=== PATIENT | female | born 1990 | race Caucasian/White ===

== ENCOUNTER 2018-03-17 05:54 | Emergency (ER) | payer OTHER ==
[2016-09-18 12:00] VITALS: BMI 20.5
[2018-03-17] MEDS ORDERED: Sodium Citrate/Citric Acid 15 ml Sol PO ONE (07:05)
[2018-03-17] MEDS ORDERED: cefOXitin IV 2 gm in Dextrose 2 GM/50 ML BAG IVPB ONE (07:05)
[2018-03-17] MEDS ORDERED: Lactated Ringer's 1,000 ML IV ONE (07:05)
--- NOTE | 2018-03-17 07:41 | OBHP ---
Datetime: 03/17/2018 07:13 IP Adm Impression: Term, intrauterine IP Admit Plan: Admit to unit; Initiate Section protocol Admit Comment, IP Provider: 27 y.o. , LMP 06/24/17 [place] 03/31/18, EGA 38w 1d by fozia at 13 week s for elective repeat C/S. (+) AFM; denies LOF, VB, Ctx. care: [facility] - denies any issues P Ob: C/S, 2011, female, 2.7 Kg, Jabier; no complications. Spont ab x 2: 2015, 14 wks with D_C; 20 16, 11 wks, no D_C. P LIVING MANAGER: 14 x monthly x 4 PMH: denies PSH: C/S, D_C NKDA Meds: PNV Soc Hx: denies tobacco, illicit drug or EtOH use. x 7 years. Homemaker Fam Hx: Mother alive 47 Father alive 52 - both, no med issues. P.E.: as above. WD in NAD. Awake, alert, oriented to time, person and place. Pleasant and coopera tive. Accompanied by Assessment: 27 y.o P1021, 38w 1d for elective repeat C/S. Category 1 tracing. Patient last ate at 2200 hours; drank water at 2300 hours. Clinically stable Plan:1) Admit 2) NPO 3) Admission labs 4) Continuous EFM 5) Abdominal prep and shave 6) [place] 7) Mefoxin, neonatal nurse practitioner to O.R. 8) Notify anesthesia 9) Notify peds 10) yard caller to O.R. - case endorsed to Dr. Parisi who will obtain all consents Addendum: case reviewed by Dr Parisi: uday on 14 weeks sono, patient is 38w 1d - decision made to reschedule C/S for 03/24/18 at 39 weeks Pelvic Type - PN: Not Done Extremities - PN: Normal Abdomen - PN: Normal Back - PN: Normal Breast - PN: Normal Lungs - PN: Normal Heart - PN: Normal Thyroid - PN: Not Done HEENT - PN: Normal General - PN: Normal FHR - Baseline A Provider: 140 Comments, ACOG Physical Exam: Abdomen: Gravid. Soft. Non tender All other system reviewed and are negative Gestation - Est Wks by US: 39w 1d IP Hx Assessment: The History has been Reviewed and is Current EGA AdmitDate IP: 39.1 Vital Signs Provider: Reviewed; Within Normal Limits IP Chief Complaint: Scheduled Section NICHD Variability Prov Fetus A: Moderate 6-25bpm NICHD Accel Fetus A IP Provider: 15X15 FHR Category Provider Fetus A: Category I NICHD Decel Fetus A IP Provider: None Dilatation, Provider: deferred Genitourinary Exam: Not Done DTRs - PN: Normal
[2018-03-17 13:22] VITALS: BP 93/61; PULSE 78
== END 2018-03-17 08:30 | disposition home or self-care (01) ==
LOC: C.EROB 05:54 → C.4D 07:07 → UNDOADMIN 07:07 → C.EROB 08:30
DX: O26.893 Other specified pregnancy related conditions, third trimester (principal); Z3A.38 38 weeks gestation of pregnancy
CPT/HCPCS: 99283; J0694; J7120

== ENCOUNTER 2018-03-19 07:39 | Inpatient (IN) | payer OTHER ==
[2018-03-19 08:08] VITALS: BMI 27.6
[2018-03-19] MEDS ORDERED: Lactated Ringer's 1,000 ML IV ONE (08:24)
[2018-03-19] MEDS ORDERED: ceFAZolin IV 2 gm in Dextrose 2 GM/50 ML BAG IVPB ONE ×2 (08:24→08:37)
--- NOTE | 2018-03-19 08:24 | OBADHP ---
Datetime: 03/19/2018 08:06 Admit Comment, IP Provider: 27 yo female with an IUP at 39 3/7 weeks with Hx of Previous C/ S and requesting an elective repeat C/S Denies LOF or Vaginal Bleeding GBS Negative/ Rh Positive Procedure, risks and possible complications fully reviewed with patient and she verbalized underst anding and requested to proceed. Pelvic Type - PN: Adequate Extremities - PN: Normal Abdomen - PN: Normal Back - PN: Normal Breast - PN: Not Done Lungs - PN: Normal Heart - PN: Normal Thyroid - PN: Normal Neurologic - PN: Normal HEENT - PN: Normal General - PN: Normal Presentation-Admit: Vertex FHR - Baseline A Provider: 140 Membranes, Provider: Intact Contraction Comments Provider: Ocassional Comments, ACOG Physical Exam: FHT's reactive and reassuring Adequate Movement Ocassional contractions Gestation - Est Wks by US: 39 3/7 IP Hx Assessment: record reviewed and WNL Vital Signs Provider: Reviewed; Within Normal Limits IP Chief Complaint: Scheduled Section NICHD Variability Prov Fetus A: Moderate 6-25bpm NICHD Accel Fetus A IP Provider: 10X10 FHR Category Provider Fetus A: Category I Genitourinary Exam: Normal DTRs - PN: Normal EGA AdmitDate IP: 39.3 IP Adm Impression: Term, intrauterine IP Admit Plan: Admit to unit; Initiate Section protocol Datetime: 03/17/2018 07:13 NICHD Decel Fetus A IP Provider: None Dilatation, Provider: deferred
[2018-03-19] MEDS ORDERED: Oxytocin 20 units in LR 2,000 ML IV ONE (08:37)
[2018-03-19] MEDS ORDERED: Sodium Citrate/Citric Acid 15 ml Sol ONE (08:37)
[2018-03-19 08:45] LABS: BASO % 0.3 % (0.0-2.0); EOS # 0.1 K/uL (0.0-0.7); EOS % 0.7 % (0.0-4.0); HEMOGLOBIN 13.5 g/dL (11.0-16.0); LYMPH # 1.9 K/uL (1.0-4.3); LYMPH % 14.6 % (20.0-40.0); MEAN CELL VOLUME 91.5 fL (81.0-99.0); MEAN CORPUSCULAR HEMOGLOBIN 31.4 pg (27.0-31.0); MEAN CORPUSCULAR HGB CONC 34.3 g/dL (33.0-37.0); MEAN PLATELET VOLUME 9.9 fL (7.2-11.7); MONO # 0.9 K/uL (0.0-0.8); MONO % 6.8 % (0.0-10.0); NEUT # 10.1 K/uL (1.8-7.0); NEUT % 77.6 % (50.0-75.0); RBC 4.3 Mil/uL (3.80-5.20); RED CELL DISTRIBUTION WIDTH 12.8 % (11.5-14.5)
[2018-03-19 08:47] LABS: SQUAMOUS EPITHIAL 3 /hpf (0-5); URINE BACTERIA RARE (<OCC); URINE BILIRUBIN NEGATIVE (NEGATIVE); URINE BLOOD NEGATIVE (NEGATIVE); URINE CLARITY Clear (Clear); URINE COLOR Straw (YELLOW); URINE GLUCOSE (UA) NORMAL (Normal); URINE LEUKOCYTE ESTERASE TRACE Leu/uL (Negative); URINE PROTEIN NEGATIVE (NEGATIVE); URINE UROBILINOGEN NORMAL mg/dL (0.2-1.0)
[2018-03-19 09:06] LABS: BARBITURATES, UR NEGATIVE (NEGATIVE); BENZODIAZEPINES, UR NEGATIVE (NEGATIVE); OPIATES, UR NEGATIVE (NEGATIVE); PHENCYCLIDINE, UR NEGATIVE (NEGATIVE)
[2018-03-19] MEDS ORDERED: Morphine 1 mg/ml preservative-free Inj(Duramorph) ONE (09:24)
[2018-03-19] MEDS ORDERED: ePHEDrine 50 mg/ml Inj ONE (10:00)
[2018-03-19] MEDS ORDERED: DiphenhydrAMINE 50 mg/ml Inj IVP PRN (10:56)
[2018-03-19] MEDS ORDERED: Oxycodone/Acetaminophen 5/325 mg Tab PO PRN ×2 (11:40)
[2018-03-19] MEDS ORDERED: Oxytocin 30 UNIT 30 UNITS/500 ML BAG IV ONE (11:40)
--- NOTE | 2018-03-19 12:21 | OBDS ---
DELIVERY PERSONNEL Delivery Doctor: DR MALENA Vu Nurse: Katty Yo Garde Manger: Florencio Jolley RN Anesthesiologist: DR BARRY MATERNAL INFORMATION Delivery Anesthesia: None Medications in Delivery: pitocin 20 Estimated Blood Loss (ml): 600 Placenta Cultured: No Maternal Complications: None Provider Comments: Repeat LTC C/S wih delivery of a viable female with Apgars 9 and 9 at 1 a nd 5 mins respectively and BW 6lbs, 6oz at 10:10 Am and with a loose CC x 1. EBL 600mls No complications. Pt and both tolerated the procedure well and both remained in the OR in Stable and Satisfactory condition. See Full Operative Report dictated. LABOR SUMMARY EDC: 03/23/2018 00:00 No. Babies in Womb: 1 Attempted: No Labor Anesthesia: None LABOR INFORMATION Oxytocin: N/A Group B Beta Strep: Negative Steroids Given: None Reason Steroids Not Administered: Not Applicable MEMBRANES Membranes Rupture Method: Artificial Rupture of Membranes: 03/19/2018 10:09 Length of Rupture (hrs): 0.02 Amniotic Fluid Color: Clear Amniotic Fluid Amount: Moderate Amniotic Fluid Odor: Normal STAGES OF LABOR Stage 3 hrs: 0 Stage 3 min: 1 VAGINAL DELIVERY Episiotomy: None Laceration Extension: N/A Laceration Type: None CSECTION DELIVERY Primary Indication: Repeat Elective Secondary Indication: N/A CSection Urgency: Elective CSection Incidence: Repeat Labor: No Labor Elective: Elective CSection Incision: Lower Uterine Transverse BABY A INFORMATION Delivery Date/Time: 03/19/2018 10:10 Method of Delivery: Born in Route : No : N/A Forceps: N/A Vacuum Extraction: N/A Shoulder Dystocia : No SHOULDER DYSTOCIA BABY A Infant Delivery Date/Time: 03/19/2018 10:10 PRESENTATION/POSITION BABY A Presentation: Cephalic Cephalic Presentation: Vertex Breech Presentation: N/A PLACENTA INFORMATION BABY A Placenta Delivery Time : 03/19/2018 10:11 Placenta Method of Delivery: Manual Removal Placenta Status: Delivered SCORES BABY A Heart Rate 1 min: >100 bpm Resp Effort 1 min: Good Cry Reflex Irritability 1 min: Cough or Sneeze or Pulls Away Muscle Tone 1 min: Active Motion Color 1 min: Body [place], Extremities Blue SCORE 1 MIN: 9 Heart Rate 5 min: >100 bpm Resp Effort 5 min: Good Cry Reflex Irritability 5 min: Cough or Sneeze or Pulls Away Muscle Tone 5 min: Active Motion Color 5 min: Body [place], Extremities Blue Resuscitation Effort 5 min: Tactile Stimulation SCORE 5 MIN: 9 INFORMATION BABY A Gestational Age at Delivery: 39.3 Gestational Status: Term Infant Outcome : Liveborn Condition : Stable Sex: Female IDENTIFICATION/MEDS BABY A ID Band Number: [id number] ID Band Location: Left Leg; Left Arm Sensor Applied: Yes Sensor Number: [id number] Sensor Location : Cord Clamp WEIGHT/LENGTH BABY A Infant Birthweight (gms): 2885 Infant Weight (lb): 6 Infant Weight (oz): 6 Infant Length Inches: 18.50 Infant Length cms: 47.0 CORD INFORMATION BABY A No. Cord Vessels: 3 Nuchal Cord : Around Neck x1, Loose Cord Blood Taken: Yes Infant Suction: Mouth; Nose ASSESSMENT BABY A Complications: None Physical Findings at Delivery: Within Normal Limits Infant Respirations: Appears Normal Scratch Polisher/ALS Called : No Care By: DR GOLDBERG Transferred To: Remains with Mother
[2018-03-19] MEDS: Simethicone 80 mg Chewtab PO SCH ×3 (15:43→21:10)
[2018-03-20 07:19] LABS: HEMOGLOBIN 12.4 g/dL (11.0-16.0); MEAN CELL VOLUME 90.4 fL (81.0-99.0); MEAN CORPUSCULAR HEMOGLOBIN 31.4 pg (27.0-31.0); MEAN CORPUSCULAR HGB CONC 34.7 g/dL (33.0-37.0); MEAN PLATELET VOLUME 9.5 fL (7.2-11.7); RBC 3.95 Mil/uL (3.80-5.20); WHITE BLOOD COUNT 15.5 K/uL (4.8-10.8)
[2018-03-20] MEDS: Prenatal Multivit/Folic Acid/Iron Tab PO SCH (09:23)
[2018-03-20] MEDS: Simethicone 80 mg Chewtab PO SCH ×4 (09:23→21:00)
--- NOTE | 2018-03-20 13:46 | OBPPN ---
Datetime: 03/20/2018 13:29 PP Pain Prov: Within normal limits PP Nausea Prov: Denies PP Flatus Prov: Yes PP BM Prov: No PP Breasts Prov: Normal PP Heart Prov: Normal PP Lungs Prov: Normal PP Abdomen/Uterus Prov: Normal PP Lochia Prov: Normal PP Vulva/Perineum Prov: Not Done PP CVA Tenderness Prov: Normal PP Extremities Prov: Normal PP Comments Phys Exam Prov: Breasts: no cracked nipples Abdomen: (+) BS. Soft. Non distended. Dressing removed: incision with jeferson - clean, dry, intact . Fundus firm, mobile, minimally tender, 1 FB below umbilicus. MIld lochisa rubra. Extremities: no calf tenderness All other systems reviewed and are negative PP Impression Prov: Normal progression PP Plan Prov: Continue present management PP Progress Note Prov: Patient received in room 459; family present. Patient in good spirits. Breast feeding with bottle. Ambulating to bathroom, voiding without difficulty. Denies lightheadedness, diz ziness, nausea or vomiting. P.E.: as above. WD in NAD. Awake, alert, oriented to time, person and place. Pleasant and cooperat hector. - POD#1, H/H 12.4/35.7. Rh(+) Assessment: POD#1, 27 y.o. P2, S/P repeat C/S. Afebrile, vital signs stable. Returning GI and functions. Clinically stable. Plan: 1) Continue present management 2) Encourage ambulation (in the hallway) Vital Signs Provider PP: Reviewed; Within Normal Limits
[2018-03-21] MEDS: Simethicone 80 mg Chewtab PO SCH ×4 (10:24→21:07)
[2018-03-21] MEDS: Prenatal Multivit/Folic Acid/Iron Tab PO SCH (10:24)
--- NOTE | 2018-03-21 22:53 | OBPPN ---
Datetime: 03/21/2018 11:42 PP Pain Prov: Within normal limits PP Nausea Prov: Denies PP Flatus Prov: Yes PP BM Prov: No PP Breasts Prov: Not Done PP Heart Prov: Normal PP Lungs Prov: Normal PP Abdomen/Uterus Prov: Normal PP Lochia Prov: Normal PP Vulva/Perineum Prov: Normal PP CVA Tenderness Prov: Normal PP Extremities Prov: Normal PP C/S Incision Prov: Normal PP Progress Prov: Normal PP Comments Phys Exam Prov: Incision clean, dry and intact Abdomen midly distended and probable early ileus. Extremities with mild pedal edema PP Impression Prov: difficulties; Pain PP Plan Prov: Continue present management; consult PP Progress Note Prov: POD # 2 S/P Repeat C/S without complications Minimal flatus but not drinking water and minimal ambulation despite adequate counseling Probable early ileus Advised to increase po water and fiber intake Encourage to ambulation in hallways 4-5xday consultation in order and helping Advance care [facility] to D/C home in AM Eating and voiding OK Vital Signs Provider PP: Reviewed; Within Normal Limits
[2018-03-22 00:19] VITALS: PULSE 84; RESP 20
[2018-03-22 08:22] VITALS: BP 105/76; TEMP 98.8
[2018-03-22] MEDS: Prenatal Multivit/Folic Acid/Iron Tab PO SCH (09:17)
[2018-03-22] MEDS: Simethicone 80 mg Chewtab PO SCH (09:17)
[2018-03-22 17:50] VITALS: O2SAT 98
--- NOTE | 2018-03-23 09:43 | OBPPN ---
Datetime: 03/22/2018 11:40 PP Pain Prov: Within normal limits PP Nausea Prov: Denies PP Flatus Prov: Yes PP BM Prov: Yes PP Breasts Prov: Not Done PP Heart Prov: Normal PP Lungs Prov: Normal PP Abdomen/Uterus Prov: Normal PP Lochia Prov: Normal PP Vulva/Perineum Prov: Normal PP CVA Tenderness Prov: Normal PP Extremities Prov: Normal PP C/S Incision Prov: Normal PP Progress Prov: Normal PP Impression Prov: Normal progression PP Plan Prov: Discharge PP Progress Note Prov: POD # 3 Stable and Satisfactory condition and recovery D/C home with instructions and Rx's Has appointment at Clinic on 03/26 IP PP Procedures: None Vital Signs Provider PP: Reviewed; Within Normal Limits
--- NOTE | 2018-03-23 09:45 | OBDCSUM ---
Datetime: 03/22/2018 14:42 Discharged to, Provider: Home Follow up at, Provider: Clinic Disch Instr Activity: Normal activity Disch Instr Diet: Regular Discharge Instructions, Provider: Routine instructions given Discharge Diagnosis, Provider: Term Delivered Follow up in weeks, Provider: 03/26/18 Contraception discussed, Prov: Yes Disch Activity Restrictions: No exercising; No lifting; Minimize stair-climbing; No sexual activity; Nothing in vagina - [place], tampons, douche Discharge Comment, Provider: POD # 3 Stable and Satisfactory condition and recovery D/C home with instructions and Rx's Has appointment at Clinic on 03/26 Continue PNV daily for 3-4 more months Take medications as prescribed
== END 2018-03-22 12:30 | disposition home or self-care (01) | DRG 371 ==
LOC: C.4D 07:39 → C.4M 14:24
PROVIDERS: ADMIT Obstetrics & Gynecology; ATTEND Obstetrics & Gynecology
PROC: 10D00Z1 Extraction of Products of Conception, Low, Open Approach (ICD-10-PCS; principal; 2018-03-19)
DX: O34.211 Maternal care for low transverse scar from previous cesarean delivery (principal); O69.81X0 Labor and delivery complicated by cord around neck, without compression, not applicable or unspecified; Z3A.39 39 weeks gestation of pregnancy; Z37.0 Single live birth